=== PATIENT | female | born 1995 | race Two or more races ===

== ENCOUNTER 2018-05-09 05:12 | Emergency (ER) | payer OTHER ==
[~2018-05-09] VITALS: Ht 157.5 cm; Wt 61.7 kg
[2018-05-09 05:13] VITALS: BP 109/64
[2018-05-09] MEDS ORDERED: BCP (05:17)
== END 2018-05-09 06:02 | disposition home or self-care (01) ==
LOC: ED 05:44
DX: S03.00XA Dislocation of jaw, unspecified side, initial encounter (principal); X58.XXXA Exposure to other specified factors, initial encounter; Y93.89 Activity, other specified; Y99.8 Other external cause status; Y92.89 Other specified places as the place of occurrence of the external cause
CPT/HCPCS: 21480; 99283; 99284

== ENCOUNTER 2018-05-09 06:24 | Emergency (ER) | payer OTHER ==
[~2018-05-09] VITALS: Ht 157.5 cm; Wt 130.0 kg
[~2018-05-09 06:24] MED LIST: BCP
[2018-05-09] MEDS ORDERED: ONDANSETRON ODT 4 MG ONE ×2 (06:40→06:58)
[2018-05-09] MEDS ORDERED: ONDANSETRON ODT 4 MG PO ONE ×2 (07:00)
[2018-05-09 07:44] VITALS: BP 148/89
== END 2018-05-09 07:46 | disposition home or self-care (01) ==
LOC: ED 06:29
DX: S03.00XA Dislocation of jaw, unspecified side, initial encounter (principal); R11.2 Nausea with vomiting, unspecified; X58.XXXA Exposure to other specified factors, initial encounter; Y93.89 Activity, other specified; Y99.8 Other external cause status; Y92.009 Unspecified place in unspecified non-institutional (private) residence as the place of occurrence of the external cause
CPT/HCPCS: 21480; 99284; Q0162; 99283